=== PATIENT | female | born 1950 | race Caucasian/White ===

== ENCOUNTER 2017-10-16 09:16 | Emergency (ER) | payer MEDICARE ==
[~2017-10-16] VITALS: Ht 180.3 cm; Wt 76.2 kg
[~2017-10-16 09:16] MED LIST: FLUT1SPR9; LEVO100T4 PO; NEXI20CA PO; PROP80CA PO
[2017-10-16] MEDS ORDERED: IOHEXOL 350 MG/ML 10 ML VIAL (for RAD DIAG) IVCONTRAST ONE (09:17)
[2017-10-16 09:21] VITALS: BP 152/58; PULSE 61; RESP 16; TEMP 97.2; O2SAT 99
[2017-10-16] MEDS ORDERED: PROP120C PO (09:35)
[2017-10-16] MEDS ORDERED: LEVO100T5 PO (09:35)
[2017-10-16] MEDS ORDERED: FLUT1SPR5 EACH NARE (09:35)
--- NOTE | 2017-10-16 09:36 | PD ---
HPI Chief Complaint: GI Complaint Time Seen by Provider: 09:31 Travel History International Travel<30 days: No Contact w/Intl Traveler<30days: No Traveled to known affect area: No History of Present Illness HPI This 67-year-old female is complaining of lower abdominal pain. She says the pain started on Friday. It does come and go. It is worse when she is about to have a bowel movement or urinate. There has not been any dysuria. There has not been any diarrhea. There is been no vomiting or diarrhea. She has no history of abdominal surgery. She is not aware of any fever or chills. She says the pain is quite sharp. It is located in the midline [facility] Past Medical History Heart Rhythm Problems: Yes (TACH) GERD: Yes Thyroid Disease: Yes ?: Not Tubal Ligation: Yes Past Surgical History Tonsillectomy: Yes Social History Alcohol Use: Yes (SOCIAL) Tobacco Use: No Substance Use: No Allergies-Medications (Allergen,Severity, Reaction): Coded Allergies: penicillin G (Unverified Allergy, Severe, TONGUE SWELLING, 10/16/17) doxycycline (Unverified Allergy, Intermediate, RASH, 10/16/17) sulfamethoxazole (Unverified Allergy, Intermediate, RASH, 10/16/17) trimethoprim (Unverified Allergy, Intermediate, RASH, 10/16/17) Reported Meds & Prescriptions Reported Meds & Active Scripts Active Reported Flonase Nasal [place] (Fluticasone Nasal P[place]) 50 Mcg/Act [place] 50 Mcg EACH NARE BID Propranolol ER 24 HR (Propranolol HCl) 120 Mg Cap 120 Mg PO DAILY Levothyroxine (Levothyroxine Sodium) 100 Mcg Tab 100 Mcg PO DAILY Review of Systems General / Constitutional: No: Fever, Chills Eyes: No: Diploplia, Blurred Vision HENT: No: Headaches, Vertigo Cardiovascular: No: Chest Pain or Discomfort, Palpitations Respiratory: No: Cough, Shortness of Breath Gastrointestinal: Positive: Abdominal Pain Genitourinary: No: Urgency, Frequency Musculoskeletal: No: Myalgias, Arthralgias Skin: No Rash, No Itching Neurologic: No: Weakness, Dizziness Psychiatric: No: Anxiety Endocrine: No: Heat Intolerance, Cold Intolerance Hematologic/Lymphatic: No: Easy Bruising Physical Exam Narrative GENERAL: Well-developed female SKIN: Focused skin assessment warm/dry. HEAD: Atraumatic. Normocephalic. EYES: Pupils equal and round. No scleral icterus. No injection or drainage. ENT: No nasal bleeding or discharge. Mucous membranes pink and moist. NECK: Trachea midline. No JVD. CARDIOVASCULAR: Regular rate and rhythm. No murmur appreciated. RESPIRATORY: No accessory muscle use. Clear to auscultation. Breath sounds equal bilaterally. GASTROINTESTINAL: Abdomen soft, non-tender, nondistended. Hepatic and splenic margins not palpable. Sided pain is a suprapubic area. There is no guarding or mass palpable MUSCULOSKELETAL: No obvious deformities. No clubbing. No cyanosis. No edema. NEUROLOGICAL: Awake and alert. No obvious cranial nerve deficits. Motor grossly within normal limits. Normal speech. PSYCHIATRIC: Appropriate mood and affect; insight and judgment normal. Data Data Last Documented VS Vital Signs Date Time Temp Pulse Resp B/P (MAP) Pulse Ox O2 Delivery O2 Flow Rate FiO2 10/16/17 11:28 70 18 132/85 (101) 100 Room Air 10/16/17 09:21 97.2 Orders Orders Complete Blood Count With Diff (10/16/17 09:31) Comprehensive Metabolic Panel (10/16/17 09:31) Lipase (10/16/17 09:31) Urinalysis - C+S If Indicated (10/16/17 09:31) Ct Abd/Pel W Iv Contrast(Rout) (10/16/17 09:31) Iohexol 350 Inj (Omnipaque 350 Inj) (10/16/17 09:17) Labs Laboratory Tests Test 10/16/17 09:40 10/16/17 09:50 Urine Collection Type CLEAN CATCH Urine Color YELLOW Urine Turbidity CLEAR Urine pH 5.5 Urine Specific [place] 1.025 Urine Protein TRACE mg/dL Urine Glucose (UA) NEG mg/dL Urine Ketones NEG mg/dL Urine Occult Blood NEG Urine Nitrite NEG Urine Bilirubin NEG Urine Urobilinogen 0.2 MG/DL Urine Leukocyte Esterase NEG Urine RBC 0-3 /hpf Urine WBC 0-2 /hpf Urine Squamous Epithelial Cells 0-5 /hpf Microscopic Urinalysis Comment CULT NOT INDICATED Urine Collection Time 09:40 White Blood Count 7.0 TH/MM3 Red Blood Count 4.21 MIL/MM3 Hemoglobin 13.6 GM/DL Hematocrit 40.3 % Mean Corpuscular Volume 95.9 FL Mean Corpuscular Hemoglobin 32.4 PG Mean Corpuscular Hemoglobin Concent 33.8 % Red Cell Distribution Width 13.5 % Platelet Count 203 TH/MM3 Mean Platelet Volume 7.5 FL Neutrophils (%) (Auto) 74.3 % Lymphocytes (%) (Auto) 15.9 % Monocytes (%) (Auto) 6.7 % Eosinophils (%) (Auto) 2.2 % Basophils (%) (Auto) 0.9 % Neutrophils # (Auto) 5.1 TH/MM3 Lymphocytes # (Auto) 1.1 TH/MM3 Monocytes # (Auto) 0.5 TH/MM3 Eosinophils # (Auto) 0.2 TH/MM3 Basophils # (Auto) 0.1 TH/MM3 CBC Comment DIFF FINAL Differential Comment Blood Urea Nitrogen 18 MG/DL Creatinine 0.83 MG/DL Random Glucose 87 MG/DL Total Protein 7.7 GM/DL Albumin 3.3 GM/DL Calcium Level 9.4 MG/DL Alkaline Phosphatase 87 U/L Aspartate Amino Transf (AST/SGOT) 65 U/L Alanine Aminotransferase (ALT/SGPT) 85 U/L Total Bilirubin 1.0 MG/DL Sodium Level 140 MEQ/L Potassium Level 4.3 MEQ/L Chloride Level 106 MEQ/L Carbon Dioxide Level 27.0 MEQ/L Anion Gap 7 MEQ/L Estimat Glomerular Filtration Rate 69 ML/MIN Lipase 237 U/L [facility] Medical Decision Making Medical Screen Exam Complete: Yes Emergency Medical Condition: Yes Medical Record Reviewed: Yes Differential Diagnosis Differential includes gastroenteritis, diverticulitis Narrative Course White count is 7000. A CT scan has been done and shows diverticulosis area of diverticulitis. She will be started on Cipro and Flagyl as she has allergies to penicillin Bactrim and doxycycline Diagnosis Primary Impression: Acute diverticulitis Scripts Metronidazole (Flagyl) 500 Mg Tab 500 MG PO TID for Infection for 7 Days, TAB 0 Refills Prov: Antoni Mackenzie MD 10/16/17 Ciprofloxacin (Cipro) 500 Mg Tab 500 MG PO BID for Infection for 7 Days, #14 TAB 0 Refills Prov: Antoni Mackenzie MD 10/16/17 Disposition: 01 DISCHARGE HOME Condition: Stable Antoni Mackenzie MD Oct 16, 2017 09:36
[2017-10-16 10:00] LABS: AUTOMATED NEUTROPHIL # 5.1 TH/MM3 (1.8-7.7); BASOPHIL # 0.1 TH/MM3 (0-0.2); BASOPHIL % 0.9 % (0.0-2.0); EOSINOPHIL # 0.2 TH/MM3 (0-0.4); EOSINOPHIL % 2.2 % (0.0-4.0); HEMATOCRIT 40.3 % (35.0-46.0); HEMOGLOBIN 13.6 GM/DL (11.6-15.3); LYMPH % 15.9 % (9.0-44.0); LYMPHOCYTE # 1.1 TH/MM3 (1.0-4.8); MEAN CELL VOLUME 95.9 FL (80.0-100.0); MEAN CORPUSCULAR HEMOGLOBIN 32.4 PG (27.0-34.0); MEAN CORPUSCULAR HGB CONC 33.8 % (32.0-36.0); MEAN PLATELET VOLUME 7.5 FL (7.0-11.0); MONO % 6.7 % (0.0-8.0); MONOCYTE # 0.5 TH/MM3 (0-0.9); NEUT % 74.3 % (16.0-70.0); PLATELET COUNT 203 TH/MM3 (150-450); RED BLOOD COUNT 4.21 MIL/MM3 (4.00-5.30); RED CELL DISTRIBUTION WIDTH 13.5 % (11.6-17.2)
[2017-10-16 10:02] LABS: BILIRUBIN, URINE NEG (NEG); BLOOD, URINE NEG (NEG); GLUCOSE,URINE NEG (NEG); KETONE, URINE NEG (NEG); NITRITE,URINE NEG (NEG); PH, URINE 5.5 (5.0-8.5); URINE COLOR YELLOW (YELLW/STRAW); URINE LEUKOCYTE ESTERASE NEG (NEG)
[2017-10-16 10:07] LABS: RBC, URINE 0-3 /hpf (0-3); SQUAMOUS EPITHELIAL CELL URINE 0-5 /hpf (0-5); WBC, URINE 0-2 /hpf (0-5)
[2017-10-16 10:24] LABS: CHLORIDE 106 MEQ/L (98-107); SODIUM (NA) 140 MEQ/L (136-145)
[2017-10-16 10:28] LABS: ALBUMIN 3.3 GM/DL (3.4-5.0); CALCIUM 9.4 MG/DL (8.5-10.1); GLUCOSE,RANDOM 87 MG/DL (74-106)
[2017-10-16 10:29] LABS: BLOOD UREA NITROGEN 18 MG/DL (7-18)
[2017-10-16 10:31] LABS: ALT (GPT) 85 U/L (10-53); AST (GOT) 65 U/L (15-37); CREATININE 0.83 MG/DL (0.50-1.00); GLOMERULAR FILTRATION RATE 69 ML/MIN (>89)
[2017-10-16 10:33] LABS: TOTAL PROTEIN 7.7 GM/DL (6.4-8.2)
[2017-10-16 10:34] LABS: ALKALINE PHOSPHATASE 87 U/L (45-117)
[2017-10-16 11:28] VITALS: BP 132/85; PULSE 70; RESP 18; O2SAT 100
--- NOTE | 2017-10-16 11:35 | RADRPT ---
EXAM DATE/TIME: 10/16/2017 10:55 [place] COMPARISON: No previous studies available for comparison. INDICATIONS : Lower diffuse abdominal pain started this am . IV CONTRAST: 85 cc Omnipaque 350 (iohexol) IV ORAL CONTRAST: No oral contrast ingested. RADIATION DOSE: 12.61 CTDIvol (mGy) MEDICAL HISTORY : Gastroesophageal reflux disease. SURGICAL HISTORY : Tubal ligation. ENCOUNTER: Initial ACUITY: 1 day PAIN SCALE: 5/10 LOCATION: Bilateral Umbilical TECHNIQUE: Volumetric scanning of the abdomen and pelvis was performed. Using automated exposure control and ad justment of the mA and/or kV according to patient size, radiation dose was kept as low as reasonably achievable to obtain optimal diagnostic quality images. DICOM format image data is available electro nically for review and comparison. FINDINGS: LOWER LUNGS: The visualized lower lungs are clear. LIVER: Homogeneous density without lesion. There is no dilation of the biliary tree. No calcified gallston es. SPLEEN: Normal size without lesion. PANCREAS: Within normal limits. KIDNEYS: Normal in size and shape. There is no mass, stone or hydronephrosis. ADRENAL GLANDS: Within normal limits. VASCULAR: There is no aortic aneurysm. BOWEL/MESENTERY: Numerous diverticula are noted throughout the sigmoid colon. There is some minimal pericolonic increa sed density along the sigmoid colon. There are no abnormal fluid collections or evidence of perforati on. The stomach, small bowel, and colon are otherwise unremarkable. There is no free intraperitoneal air or fluid. ABDOMINAL WALL: Within normal limits. RETROPERITONEUM: There is no lymphadenopathy. BLADDER: No wall thickening or mass. REPRODUCTIVE: Within normal limits. INGUINAL: There is no lymphadenopathy or hernia. MUSCULOSKELETAL: Degenerative changes without evidence of acute process. CONCLUSION: 1. Sigmoid diverticulosis with possible mild acute diverticulitis. 2. No evidence of abscess or perforation. 3. Otherwise unremarkable exam. Jonny Lamas MD on October 16, 2017 at 11:29 Board Certified Radiologist. This report was verified electronically.
[2017-10-16] MEDS ORDERED: METR-1 PO (11:52)
[2017-10-16] MEDS ORDERED: CIPR-9 PO (11:52)
== END 2017-10-16 12:10 | disposition home or self-care (01) ==
LOC: PHED 09:16
DX: K57.32 Diverticulitis of large intestine without perforation or abscess without bleeding (principal); K21.9 Gastro-esophageal reflux disease without esophagitis; E07.9 Disorder of thyroid, unspecified
CPT/HCPCS: 74177; 80053; 81001; 83690; 85025; 99284; Q9967